=== PATIENT | male | born 1985 | race African-American/Black ===

== ENCOUNTER 2020-09-06 23:17 | Emergency (ER) | payer SELFPAY ==
--- NOTE | ~2020-09-06 | CT_ITS ---
EXAMINATION: CT abdomen pelvis w con DATE: 09/07/2020 04:25 INDICATION: Left groin pain and lower abdomen pain TECHNIQUE: Computed tomography (CT) of the abdomen and pelvis was performed with 100 cc Omnipaque 350 intravenous contrast. The dose-length product was 357.26 mGy-cm. Automated exposure control and iter ative reconstruction technique were employed. COMPARISON: None. FINDINGS: Lung bases are unremarkable. Heart size normal. No significant pleural or pericardial effus ion. Mild fatty infiltration of the liver. The spleen, pancreas, adrenal glands and kidneys are unremarkab le. Gallbladder is present. Nonobstructive bowel gas pattern. No free air or free fluid. There is a fat-containing right inguinal hernia. The involved omental fat exhibits mild induration. C annot exclude infectious/inflammatory process or infarction of the fat. IMPRESSION: 1. Fat containing right inguinal hernia. The involved omental fat exhibits mild induration. Cannot ex clude infectious/inflammatory process or omental infarct. Reviewed, dictated and finalized at location A. IMPRESSION: 1. Fat containing right inguinal hernia. The involved omental fat exhibits mild induration. Cannot exclude infectious/inflammatory process or omental infarct.
[2020-09-06 23:48] VITALS: BP 143/86; PULSE 78; RESP 20; TEMP 36.8; O2SAT 100
[2020-09-07 00:46] VITALS: BP 128/89; PULSE 73; RESP 18; O2SAT 100
--- NOTE | 2020-09-07 01:36 | PC.NURSE ---
pt to restroom for urine sample at this time.
[2020-09-07 01:49] LABS: Basophils Percent Auto 0.3 % (0.2-1.2); Eosinophils Absolute Auto 0.2 K/mm3 (0-0.3); Eosinophils Percent Auto 1.7 % (0-4.4); Hematocrit 45.2 % (42.0-52.0); Hemoglobin 15.5 g/dL (14.0-18.0); Immature Granulocyte Absolute 0.02 K/mm3 (0.00-0.031); Immature Granulocyte Percent A 0.2 % (0-0.5); Lymphocytes Absolute Auto 4.43 K/mm3 (0.9-3.2); Lymphocytes Percent Auto 49.4 % (18.3-44.2); Mean Corpuscular HGB Conc 34.3 g/dl (32-36); Mean Corpuscular Hemoglobin 32.2 pg (26-34); Mean Corpuscular Volume 93.8 fl (80-100); Mean Platelet Volume 12.1 fl (7.4-10.4); Monocytes Absolute Auto 0.4 K/mm3 (0.1-0.6); Monocytes Percent Auto 4.2 % (2.6-8.5); Neutrophils Percent Auto 44.2 % (45.5-73.1); Platelet Count Result 181 k/mm3 (150-375); Red Blood Count 4.82 M/mm3 (4.6-6.20); Red Cell Distribution Width 12.6 % (11.5-14.5)
[2020-09-07 01:59] LABS: Add Urine Microscopic? NO; Appearance Urine Clear (Clear); Bilirubin Urine Negative (Negative); Blood Urine Negative (Negative); Color Urine Yellow (Yellow); Glucose Urine UA Negative (Negative); Ketones Urine Negative (Negative); Leukocyte Esterase Ur Negative LEU/UL (Negative); Nitrate Urine Negative (Negative); Protein Urine Negative (Negative); Specific Grav Ur 1.025 (1.001-1.035); Urobilinogen Urine Negative mg/dL (<2.0)
[2020-09-07 02:04] LABS: Alanine Aminotransferase 26 U/L (4-50); Albumin Level 4.6 g/dL (3.5-5.1); Alkaline Phosphatase 133 U/L (38-126); Anion Gap 6 mmol/L (8-16); Aspartate Amino Transferase 25 U/L (17-59); Bilirubin,Total 0.3 mg/dL (0.2-1.3); Blood Urea Nitrogen 9 mg/dL (9-20); Calcium 10.6 mg/dL (8.4-10.2); Carbon Dioxide 28 mmol/L (22-30); Chloride 107 mmol/L (98-107); Estimated CRCL calculation 108 ml/min; Estimated Glomerular Filt Rate > 60; Glucose 95 mg/dL (75-110); Lipase 154 U/L (23-300); Potassium 4.2 mmol/L (3.4-5.0); Sodium 141 mmol/L (137-145)
[2020-09-07 03:14] VITALS: BP 112/76; PULSE 58; RESP 18; O2SAT 100
--- NOTE | 2020-09-07 03:29 | ED.GENADULT ---
HPI - General Adult General Chief complaint: Unspecified Stated complaint: hernia Time Seen by Provider: 09/07/20 02:52 Source: patient Mode of arrival: ambulatory Limitations: no limitations History of Present Illness HPI narrative: This is a 35 year old male who presents for evaluation of right groin pain and swelling. He noticed 1 week ago he was having intermittent bulge to his right groin. He states the bulge is getting more prominent and painful. He thinks he may have a hernia. He denies fever , chills, nausea, vomiting. He has some mild lower abdominal pain. He denies dysuria, penile lesions, discharge or hematuria. His last BM was before coming to ER. Related Data Home Medications Medication Instructions Recorded Confirmed No Home Medications 09/07/20 09/07/20 Allergies Allergy/AdvReac Type Severity Reaction Status Date / Time No Known Allergies Allergy Verified 09/07/20 00:48 Review of Systems Review of Systems: All systems reviewed & are unremarkable except as noted in HPI and below PMFSH Past Medical History Medical History (Updated 09/07/20 @ 05:18 by Radha Beasley MD) Patient denies medical problems Surgical History Surgical History (Updated 09/07/20 @ 03:33 by Radha Beasley MD) No pertinent past surgical history Social History Social History (Updated 09/07/20 @ 03:33 by Radha Beasley MD) Smoking status: Never smoker Gender identity (if verbalized by the patient): Male Exam Narrative: Exam Narrative: GENERAL: Well-appearing, well-nourished, and in no acute distress. HEAD: Normocephalic, atraumatic EYES: PERRLA and EOMI, conjunctiva clear without discharge THROAT:Mucous membranes moist, NECK: Supple, without lymphadenopathy or mass RESPIRATORY: No respiratory distress, Airway patent, Respirations non-labored, Clear to auscultation without rales, rhonchi or wheeze HEART: Regular rate and rhythm. No murmur heard. Normal peripheral pulses. ABDOMEN: Soft, RLQ tenderess, there appears to be some prominence to right groin, no definite hernia, nondistended, normal active bowel sounds. No masses. No rebound or guarding, No organomegaly. EXTREMITIES: No edema, normal strength with full range of motion. SKIN: Warm, dry, normal color without rash NEURO: Alert and oriented x3. CN 2-12 grossly intact. No focal deficits. PSYCH: Normal mood and affect. : Penis: Yes circumcised Meatus: meatus normal Scrotum: scrotum normal Testes: Testes normal Course Reevaluation(s) Reevaluation #1: I have discussed with patient CT shows show a right inguinal hernia containing fat . I Discussed discharge plan and treatment. He will follow up with general surgeon as outpatient. Date: 09/07/20 Time: 05:13 Vital Signs Vital signs: Vital Signs Temperature 98.2 F 09/06/20 23:48 Pulse Rate 78 09/06/20 23:48 Respiratory Rate 20 09/06/20 23:48 Blood Pressure 143/86 H 09/06/20 23:48 Pulse Oximetry 100 09/06/20 23:48 Temperature 98.2 F 09/06/20 23:48 Pulse Rate 59 L 09/07/20 05:30 Respiratory Rate 16 09/07/20 05:30 Blood Pressure 128/86 09/07/20 05:30 Pulse Oximetry 100 09/07/20 05:30 Medical Decision Making Vital Signs Vital Signs: Vital Signs Temperature 98.2 F 09/06/20 23:48 Pulse Rate 78 09/06/20 23:48 Respiratory Rate 20 09/06/20 23:48 Blood Pressure 143/86 H 09/06/20 23:48 Pulse Oximetry 100 09/06/20 23:48 Temperature 98.2 F 09/06/20 23:48 Pulse Rate 59 L 09/07/20 05:30 Respiratory Rate 16 09/07/20 05:30 Blood Pressure 128/86 09/07/20 05:30 Pulse Oximetry 100 09/07/20 05:30 Lab Data Lab results reviewed: Yes I reviewed the patient's lab results. Result diagrams: 09/07/20 01:35 09/07/20 01:36 Labs: Lab Results 09/07/20 09/07/20 09/07/20 Range/Units 01:35 01:36 01:48 WBC 9.0 (4.5-10.0) K/mm3 RBC 4.82 (4.6-6.20) M/mm3 Hgb 15.5
[2020-09-07] MEDS: KETOROLAC 15 MG/ML VIAL (*BKC) IV PUSH (03:39)
[2020-09-07 05:30] VITALS: BP 128/86; PULSE 59; RESP 16; O2SAT 100
== END 2020-09-07 05:31 | disposition home or self-care (01) ==
PROVIDERS: Emergency Provider General Practice
DX: K40.90 Unilateral inguinal hernia, without obstruction or gangrene, not specified as recurrent (principal)
CPT/HCPCS: 36415; 74177; 80053; 81003; 83690; 85025; 96374; 99284; J1885; Q9967

== ENCOUNTER → 2020-10-22 01:28 | Outpatient (CLI) | payer MEDICAID, SELFPAY ==
[2020-10-23 14:07] LABS: SARS-CoV-2 RNA PCR Negative
== END ==
PROVIDERS: PCP Emergency Medicine; Visit Provider Surgery
DX: Z01.812 Encounter for preprocedural laboratory examination (principal); Z20.822 Contact with and (suspected) exposure to COVID-19
CPT/HCPCS: C9803; U0003; U0005

== ENCOUNTER 2020-10-25 01:40 | Day surgery (SDC) | payer MEDICAID, SELFPAY ==
[2020-10-11 11:47] VITALS: BMI 24.7
--- NOTE | 2020-10-23 15:39 | PM.SD2 ---
Same Day Admit/Disch: HPI History of Present Illness Chief complaint: right inguinal hernia Narrative: Chauncey Guillermo is a 35 year old male Who noticed in early August that he had a bulge and discomfort in the right groin. He notices mostly when he lifts things. He went to the emergency room and was noted by exam and CT scan to have a right inguinal hernia. He was seen in the office and found to have a reducible right inguinal hernia. He is taken to surgery now for right inguinal hernia repair. [facility] Past Medical History Medical History Bronchitis Surgical History Surgical History H/O knee surgery Family History Family History Grandparent Diabetes mellitus Cancer Cerebrovascular accident Social History Social History Years smoked: 8 Smoking status: Former smoker Smoking end date: 09/07/20 Alcohol intake: current Drinks per week: 4 Substance use: former Substance use type: marijuana Last use: BEGINNING OF AUGUST Living arrangements: with family Gender identity (if verbalized by the patient): Male Spiritual care concerns: No Same Day Admit/Disch: Med Pre-admit Medications Home Medications Medication Instructions Recorded Confirmed Type hydrocodone-acetaminophen 1 - 2 tablet PO Q6H PRN #15 tablet 10/25/20 Rx ketorolac 10 mg PO Q6H 4 Days #16 tablet 10/25/20 Rx Exam Const: General: comfortable, no acute distress, alert and awake HENMT: Head: normocephalic and atraumatic Mouth: Yes Normal oral and palatal mucosa present Eyes: Conjunctivae: conjunctivae normal Pupils: Equal, round and reactive pupils present EOM: EOMs intact bilaterally Neck: Neck: normal visual inspection, no lymphadenopathy and nontender Resp: Effort & Inspection: normal respiratory effort Auscultation: clear to auscultation bilaterally Cardio: Rate: regular rate Rhythm: regular rhythm Heart sounds: no gallops, no murmurs and no rubs GI: Inspection: non-distended GI Palp: Yes Soft to palpation, No Tenderness to palpation present (GI), No Hepatomegaly present and No Splenomegaly present : Male General Exam: Yes hernia ( Right inguinal) Penis: Yes normal penis Scrotum: scrotum normal and inguinal hernia on the right ( reducible right inguinal hernia) Testes: Testes normal Skin: Lesions: no lesions Rashes: no rashes Neuro: General: no focal motor deficits and CN's II-XI intact bilaterally Cranial nerves: Yes Equal, round and reactive pupils present, Yes Bilaterally intact EOM present, Yes facial symmetry and Yes Midline tongue present Speech: normal speech Motor exam (neuro): 5/5 motor strength present throughout and Motor abnormalities not present Extrem: General: no clubbing, cyanosis or edema and edema Psych: Affect: normal affect Thought process: Normal thought process present Insight: Good insight present (Psych) DS: Summary Time Spent with Patient Time attestation: Total time spent providing and/or coordinating discharge services: DS: Admitting Diagnosis Admitting Diagnosis Admitting Diagnosis: reducible, symptomatic right inguinal hernia. Plan to repair with mesh as an outpatient under anesthesia. The procedure the risks the benefits have been discussed with the patient. The usual time of recovery was discussed. All questions were answered. He understands and agrees to go ahead. DS: Discharge Diagnosis Discharge Diagnosis (1) Right inguinal hernia: Code(s): K40.90 - Unilateral inguinal hernia, without obstruction or gangrene, not specified as recurrent Status: Acute Discharge Plan Discharge Patient Disposition: Home, Self-Care Discharge Instructions: 1. May shower the day after surgery over incision. 2. Call office for: -Wound increasingly rolf
--- NOTE | 2020-10-24 12:18 | WPDANESEPPF ---
Anes - Initial Pre Proc Eval Procedure: Operation Date: 10/25/20 10:00 Proposed Procedures p Right Inguinal Hernia Repair - Brody Cardoso MD Date/Time: 10/24/20 12:18 Surgeon: Brody Cardoso MD Pre Op Diagnosis: right inguinal hernia Patient Data Age: 35 Gender: M Height: 1.83 m Weight: 83 kg Allergies Allergy/AdvReac Type Severity Reaction Status Date / Time No Known Allergies Allergy Verified 10/11/20 11:47 Home Medications Medication Instructions Recorded Confirmed Type No Home Medications 09/07/20 10/11/20 History Patient hx anesthesia problems: none Family hx anesthesia problems: none PMFSH Past Medical History Medical History Bronchitis Surgical History Surgical History H/O knee surgery Family History Family History Grandparent Diabetes mellitus Cancer Cerebrovascular accident Social History Social History Years smoked: 8 Smoking status: Former smoker Smoking end date: 09/07/20 Alcohol intake: current Drinks per week: 4 Substance use: former Substance use type: marijuana Last use: BEGINNING OF AUGUST Living arrangements: with family Gender identity (if verbalized by the patient): Male Spiritual care concerns: No Anes - Eval Final PreProcedure Day of Procedure 10/24/20 12:18 Patient weight: normal Heart: regular rate and rhythm Lungs: clear to auscultation and normal air movement Airway: Mallampati scale class II Neurological: alert and oriented Last oral intake: >/= 8 hours ASA classification: I Emergent: no Anesthetic plan: proceed Anesthesia type and monitoring: general GIVS Informed Consent: The patient's anesthetic plan and its attendant risks and benefits were discussed with the patient/family/POA. Questions were solicited and answers provided to the satisfaction of the patient/family/POA.
--- NOTE | 2020-10-25 06:49 | WPDHPUPDATE1 ---
History and Physical Update Update Date/Time: 10/25/20 06:49 History and Physical has been reviewed, including an updated exam of the patient. There are NO changes in the patient's condition. Risks, benefits, and alternatives have been discussed and questions answered. Patient agrees to proceed with procedure.
[2020-10-25] MEDS: LACTATED RINGERS 1,000 ML 30 ML IV CONT ×2 (09:00→10:42)
[2020-10-25] MEDS: KETOROLAC 15 MG/ML VIAL (*BKC) IV PUSH (09:08)
[2020-10-25] MEDS: ACETAMINOPHEN 500 MG TABLET 1000 MG PO (09:08)
[2020-10-25 09:15] VITALS: BP 110/66; PULSE 63; RESP 18; TEMP 35.5; O2SAT 100
[2020-10-25] MEDS: ceFAZolin 2 GM/D5W 50 ML 2 GM/50 ML BAG IVPB (09:26)
[2020-10-25] MEDS: BUPIVACAINE/EPINEPHRINE 0.5% 10 ML VIAL 30 ML INFILTRATE (09:53)
[2020-10-25 10:42] VITALS: BP 153/79; PULSE 98; RESP 14; O2SAT 96
--- NOTE | 2020-10-25 10:59 | P.OP_ITS ---
Procedure Note - Detailed Date of Procedure 10/25/20 Pre-op Diagnosis right inguinal hernia Post-op Diagnosis same Procedure Performed Right inguinal hernia repair with 6 cm Parietex hernia mesh system Surgeon Brody Cardoso MD Loan Servicing Representative Faith CASTILLO Anesthesia general (G IV S) and local (0.5% Marcaine with epinephrine) Indications Patient is a 35-year-old man who noticed a painful right inguinal bulge. He went to the emergency room initially and was then seen in my office. He has a reducible symptomatic right inguinal hernia. He is taken to surgery now for repair. Findings Showed a large indirect right inguinal hernia Description of Procedure The patient was taken to surgery and IV sedation was administered. The right groin and genitalia were prepped and draped. The proposed incision was marked on the skin. Local was infiltrated in the area of the anticipated incision and in the deeper subcutaneous tissues. Incision was made dissection was carried down through the subcutaneous. Crossing veins were cauterized and divided. Eventually we dissected through Rudy's fascia and down to the external oblique aponeurosis. The aponeurosis was exposed as was the external ring. Additional local was infiltrated deep to the aponeurosis in the area of the inguinal canal. The aponeurosis was opened laterally and extended medially through the external ring. Care was taken to avoid injury to the ileoinguinal nerve which was left attached to the cord throughout the surgery. The leaves of the aponeurosis were freed from the inguinal canal contents. We then mobilized the cord medially on a Stanford drain. The cord was further mobilized back to the internal ring. Dissection in the anteromedial spermatic cord revealed the hernia. We carefully dissected the hernia sac free from the spermatic cord contents. Cremasteric fibers were divided and the cord was further mobilized. The sac was dissected from the cord contents and then dissected back to a high dissection. It was then dunked into the retroperitoneum. A 6 cm Parietex [place] was chosen. It was folded a formal plug. It was placed in the defect and sutured in position to the transversalis fascia with interrupted 3 0 Vicryl suture. The patch was then cut to the appropriate size and placed over the inguinal canal floor. The lateral leaves were passed beyond the cord. The cord and ilioinguinal nerve were then laid over the patch. Additional local was infiltrated. The external oblique aponeurosis was closed with interrupted 3 0 Vicryl suture. Rudy's fascia was closed with interrupted 3 0 Vicryl suture. The subcutaneous was closed with interrupted 4 0 Vicryl suture. Subcuticular interrupted 4 0 Vicryl sutures were used to loosely approximate the skin. Finally a running 4 Monocryl skin stitch was placed. The wound was dressed with Exofin surgical adhesive. Patient was awakened and taken to recovery in good condition. Estimated blood loss was 5 cc. Sponge and needle counts were correct x2. No complications were noted. Implants 6 cm Parietex hernia mesh system Estimated Blood Loss 5 Drains No Packing No Pathology none sent Complications None Condition stable Disposition same day
[2020-10-25 11:06] VITALS: BP 138/102; PULSE 70; RESP 15; O2SAT 99
[2020-10-25 11:16] VITALS: BP 123/71; PULSE 64; RESP 14; TEMP 35.5; O2SAT 99
--- NOTE | 2020-10-25 11:39 | SUR.PHASEII ---
1130- awake, up to chair. voided
[2020-10-25 11:45] VITALS: BP 141/93; PULSE 65; RESP 14; O2SAT 99
[2020-10-25 12:25] VITALS: BP 151/96; PULSE 66; RESP 16; O2SAT 99
== END 2020-10-25 12:28 | disposition home or self-care (01) ==
PROVIDERS: PCP Emergency Medicine; Visit Provider Surgery
PROC: (CPT 49505; principal; 2020-10-25 10:00)
DX: K40.90 Unilateral inguinal hernia, without obstruction or gangrene, not specified as recurrent (principal); Z87.891 Personal history of nicotine dependence; F12.90 Cannabis use, unspecified, uncomplicated
CPT/HCPCS: 49505; A9270; C1781; J0690; J1885; J2250; J2704; J3010; J7120

== ENCOUNTER 2023-05-09 18:00 | Emergency (ER) | payer OTHER, SELFPAY ==
--- NOTE | ~2023-05-09 | XR_ITS ---
EXAMINATION: XR lumbar spine 2-3V DATE: 05/09/2023 19:16 INDICATION: Low back pain TECHNIQUE: Anteroposterior and lateral views of the lumbar spine, and cone-down lateral view of the l umbosacral junction were obtained. COMPARISON: CT, 09/07/2020 FINDINGS: Bone alignment is normal. There is no fracture. There is mild loss of intervertebral disc s pace height at L5-S1. IMPRESSION: 1. Mild lumbar spondylosis without acute findings. Reviewed, dictated and finalized at location F. R/OPERATOR
[2023-05-09 18:00] VITALS: BP 154/100; PULSE 62; RESP 18; TEMP 36.6; O2SAT 100
[2023-05-09] MEDS: CYCLOBENZAPRINE HCL 5 MG TABLET PO (19:11)
[2023-05-09] MEDS: ACETAMINOPHEN 500 MG TABLET 1000 MG PO (19:11)
[2023-05-09] MEDS: KETOROLAC (*BKC) 60 MG/2 ML VIAL IM (19:27)
--- NOTE | 2023-05-09 19:33 | ED.BACK ---
HPI - Back Pain/Injury General Chief Complaint: Back Pain/Injury Stated Complaint: back pain Time Seen by Provider: 05/09/23 18:10 Source: patient Mode of arrival: ambulatory Limitations: no limitations History of Present Illness HPI Narrative: Patient is a 38-year-old male who presents to the ED with report of lower back pain. Patient reports he picked up his child on Wednesday and felt a pulling sensation in his lower back. He complains of pain across his lower back since then, progressively worsening. He tried taking Excedrin today with minimal improvement. Reports occasional radiation down his legs. Pain worse with movement. Denies any numbness, saddle anesthesia, abdominal pain, weakness, bowel or bladder incontinence, fevers, nausea, vomiting. Related Data Allergies Allergy/AdvReac Type Severity Reaction Status Date / Time No Known Allergies Allergy Verified 05/09/23 18:49 Review of Systems Review of Systems: CONSTITUTIONAL: Denies fever, chills, or sweats. GASTROINTESTINAL: Denies incontinence, abdominal pain, nausea, vomiting, or diarrhea. GENITOURINARY: Denies incontinence, dysuria or hematuria. MUSCULOSKELETAL: See HPI. NEUROLOGIC: Denies headache, dizziness, numbness, or weakness. All systems reviewed & are unremarkable except as noted in HPI and below PMFSH Past Medical History Medical History Bronchitis Surgical History Surgical History H/O knee surgery H/O right inguinal hernia repair 10/25/20 Right inguinal hernia repair with 6 cm Parietex hernia mesh system Family History Family History Grandparent Diabetes mellitus Cancer Cerebrovascular accident Social History Social History Years smoked: 8 Smoking status: Former smoker Smoking end date: 09/07/20 Alcohol intake: current Drinks per week: 4 Substance use: former Substance use type: marijuana Last use: BEGINNING OF AUGUST Living arrangements: with family Occupation/Education: unemployed Gender identity (if verbalized by the patient): Male Spiritual care concerns: No Exam Narrative: GENERAL: Well appearing, well-nourished, non-toxic, in no acute distress. HEAD: Normocephalic, atraumatic. RESPIRATORY: Airway patent, respirations nonlabored. CARDIOVASCULAR: Regular rate and rhythm. MUSCULOSKELETAL: Moves all extremities. No gross deformities. No significant appreciable lumbar midline spinal tenderness. Mild bilateral lumbar paraspinal muscular tenderness. No palpable bony step-offs or deformities. Sensation intact. SKIN: Warm, dry, normal color. NEURO: A&O X3. Speech clear. Cranial nerves II-XII grossly intact. Steady gait. No ataxic movements. PSYCHIATRIC: Appropriate mood and affect. Normal interaction. Course Vital Signs Vital signs: Vital Signs Temperature 97.9 F 05/09/23 18:00 Pulse Rate 62 05/09/23 18:00 Respiratory Rate 18 05/09/23 18:00 Blood Pressure 154/100 H 05/09/23 18:00 Pulse Oximetry 100 05/09/23 18:00 Oxygen Delivery Room Air 05/09/23 18:00 Temperature 97.9 F 05/09/23 18:00 Pulse Rate 62 05/09/23 18:00 Respiratory Rate 18 05/09/23 18:00 Blood Pressure 154/100 H 05/09/23 18:00 Pulse Oximetry 100 05/09/23 18:00 Oxygen Delivery Room Air 05/09/23 18:00 MDM - Back Pain/Injury MDM Narrative Medical decision making narrative: Patient's pain is positional and localized to paraspinal muscles without signs of cord compression or cauda equina. Normal neurologic exams. No red flag symptoms. No fever noted and no significant risk factors for osteomyelitis or spinal epidural abscess. No symptoms or signs to suggest pain is referred from abdominal or source. Patient ambulates with a steady gait and is felt to be
[2023-05-09 20:05] VITALS: BP 143/92; PULSE 73; RESP 14; O2SAT 100
[2023-05-09 22:00] VITALS: BP 153/91; PULSE 71; RESP 17; O2SAT 100
== END 2023-05-09 22:02 | disposition home or self-care (01) ==
PROVIDERS: Emergency Provider Physician Assistant
DX: S39.012A Strain of muscle, fascia and tendon of lower back, initial encounter (principal); Z87.891 Personal history of nicotine dependence; M47.816 Spondylosis without myelopathy or radiculopathy, lumbar region; X50.0XXA Overexertion from strenuous movement or load, initial encounter
CPT/HCPCS: 72100; 96372; 99283; A9270; J1885